=== PATIENT | male | born 1985 | race Hispanic/Latino ===

== ENCOUNTER 2017-07-06 17:42 | Inpatient (IN) | payer SELFPAY ==
[2017-07-06 18:40] LABS: BASO # 0.1 K/uL (0.0-0.2); BASO % 1.3 % (0.0-2.0); EOS % 0.2 % (0.0-4.0); LYMPH # 2.9 K/uL (1.0-4.3); LYMPH % 26.4 % (20.0-40.0); MEAN CORPUSCULAR HEMOGLOBIN 30.6 pg (27.0-31.0); MEAN CORPUSCULAR HGB CONC 35.2 g/dL (33.0-37.0); MEAN PLATELET VOLUME 7.7 fL (7.2-11.7); MONO % 9.4 % (0.0-10.0); RED CELL DISTRIBUTION WIDTH 13.7 % (11.5-14.5)
[2017-07-06 18:49] LABS: CHLORIDE 98 mmol/L (98-107); POTASSIUM 3.9 mmol/L (3.6-5.2); SODIUM 137 mmol/L (132-148)
[2017-07-06 18:51] LABS: BILIRUBIN,TOTAL 1.6 mg/dL (0.2-1.3); GFR AFRICAN-AMERICAN > 60
[2017-07-06 18:52] LABS: ALB/GLOB RATIO 1.5 (1.0-2.1); ALKALINE PHOSPHATASE 79 U/L (38-126); ALT/SGPT 60 U/L (21-72); AST/SGOT 91 U/L (17-59); BLOOD UREA NITROGEN 19 mg/dL (9-20); CALCIUM 9.9 mg/dl (8.6-10.4); CARBON DIOXIDE 24 mmol/L (22-30); GLUCOSE,RANDOM 98 mg/dL (75-110)
[2017-07-06 18:53] LABS: ALCOHOL SERUM < 10 mg/dl (0-10)
[2017-07-06 20:28] LABS: RBC URINE 3 /hpf (0-3); URINE BACTERIA RARE (<OCC); URINE BILIRUBIN NEGATIVE (NEGATIVE); URINE BLOOD NEGATIVE (NEGATIVE); URINE COLOR Amber (YELLOW); URINE GLUCOSE (UA) NORMAL (Normal); URINE KETONE 1+ mg/dL (NEGATIVE); URINE LEUKOCYTE ESTERASE NEG Leu/uL (Negative); URINE PROTEIN 1+ mg/dL (NEGATIVE); WBC URINE 2 /hpf (0-5)
--- NOTE | 2017-07-07 00:31 | C.PDOC ---
History Of Present Illness Pt was BIBEMS due to bizarre behaviour and agitation. Time Seen by Provider: 07/06/17 18:13 Chief Complaint (Nursing): Altered Mental Status History Per: Patient, EMS History/Exam Limitations: Clinical Condition Onset/Duration Of Symptoms: Unknown Current Symptoms Are (Timing): Still Present Exacerbating Factor(s): Drug Use Severity: Severe Additional History Per: Prior Records Associated Symptoms: Agitated Past Medical History Reviewed: Historical Data, Nursing Documentation, Vital Signs Vital Signs: Last Vital Signs Temp 97.9 F 07/06/17 19:15 Pulse 94 H 07/07/17 00:15 Resp 18 07/07/17 00:15 BP 104/57 L 07/07/17 00:15 Pulse Ox 97 07/07/17 00:33 Family History: States: Unknown Family Hx - Social History Hx Alcohol Use: No (UNKNOWN) Hx Substance Use: Yes Review Of Systems Review Of Systems: ROS cannot be obtained secondary to pt's inabilty to answer questions. Physical Exam - Physical Exam Appears: Combative, Agitated, Confused Skin: Normal Color, Warm, Dry, No Rash Head: Atraumatic, Normacephalic Eye(s): bilateral: PERRL Neck: Normal ROM, No Midline Cervical Tenderness, No Step Off Deformity, Supple Chest: Symmetrical, No Deformity Cardiovascular: Rhythm Regular Respiratory: Normal Breath Sounds, No Accessory Muscle Use Gastrointestinal/Abdominal: Soft, No Tenderness Extremity: Normal ROM, No Deformity Neurological/Psych: Inappropriate Response To Command, Other (Pt is internally pre-occupied, responding to internal stimuli) ED Course And Treatment - Laboratory Results Result Diagrams: 07/06/17 18:36 07/06/17 18:36 Lab Interpretation: No Acute Changes O2 Sat by Pulse Oximetry: 97 Pulse Ox Interpretation: Normal Progress Note: Pt had to be sedated for his and the staff's/other patients' safety. Reassessment Condition: Improved Disposition - Disposition Disposition Time: 00:56 Condition: IMPROVED - Clinical Impression Clinical Impression: Agitation, Drug intoxication Physician Patient Turnover Patient Signed Over To: Chana Baires Handoff Comments: to reassess pt once sedation wears off.
--- NOTE | 2017-07-07 12:06 | PCM.BM ---
<Libby Jo - Last Filed: 07/07/17 12:04> Treatment Plan Problems - Problems identified on initial assessmt Psychosis Date Initiated: 07/07/17 Time Initiated: 12:05 Assessment reference: NA Status: Active Treatment assets and liabiliti Patient Assests: educated, ADL independent, good support system - Milieu Protocol Maintain good personal hygiene: daily Encourage regular showers, daily Remind patient to perform daily oral care, daily Assist patient to perform ADL's Maintain personal safety: daily Educate patient to report safety concerns to staff, daily Monitor environment for contraband/sharps Medication safety: Monitor for expected outcome, potential side effects: daily, Assess barriers to learning: daily, Assess readiness for medication education: daily <Faraz Corral - Last Filed: 07/07/17 18:10> - Diagnosis (1) Cannabis use disorder, severe, dependence Status: Acute Interventions: Assess 7x/week regarding severity of withdrawal Educated regarding risks, benefits, side effects and alternatives of medications Used motivational interview for abstinence Used CBT for relapse prevention Medication management for withdrawal symptoms Encouraged medication assisted treatment 07/07/17 18:08 (2) 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 07/07/17 18:10 <Sarah Pereira - Last Filed: 07/10/17 11:25> Family Contact Family involvement: Family/SO is involved Family contact: Patient agrees to contact, Patient declines to allow family contact at present - Goals for Treatment Patient goals for treatment: "I want to go home." Discharge/Continuing Care - Education Needs Education Needs: Patient Medication, Patient Coping Skills - Discharge Discharge Criteria: Tolerates medication w/o severe side effects, Free of paranoid thoughts, Reduction of target symptoms Discharge to:: Home - Treatment Team Participation Discussed with Family/SO: No Was Patient/Family/SO present at Treatment Team Meeting: Yes <Raji Munson - Last Filed: 07/10/17 11:37> - Diagnosis (1) Brief psychotic disorder Status: Acute Interventions: 07/10/17 11:36 * Assess/adjust medications daily and /or as needed * See patient on an individual basis 7x/week to assess status of hallucinations * Discuss risks, benefits, side effects and alternatives of medications *
--- NOTE | 2017-07-07 17:59 | PCM.PSYCH ---
Initial Psychiatric Evaluation - Initial Psychiatric Evaluation Type of Admission: Voluntary Legal Status: Capacity Chief Complaint (in patient's own words): I'm fine. I want to go home. History of Present Illness and Precipitating Events: Patient is a 31 years old, single, who was found wandering in the traffic in [place] and was brought to ER by police disorganized and angry. Patient was a poor historian. No information was obtained from the patient. Most of the history is obtained from the record. Patient reported that he has been in national chart since 2001. 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 Patient reported he has been a member in good standing with the [employer] and left in 2011. Patient reported he was resting at his home after left foot injury. He left home and came to the hospital. Patient couldn't provide any reason that why he left his home and came to the hospital. According to the record, patient was observed wandering in traffic dazed and confused in [place]. At that time patient had no shoes on and was found inappropriately dressed for the weather. The collateral information which was obtained from family, according to record, patient left home after destroying a television, potted plants and pictures. According to family, patient has been observed acting strange and bizarre. In the ER [facility] patient was agitated and was put in 4. restraints. Patient reported he started using cannabis at 11 years of age. He was using large amount of cannabis. Last use was yesterday. During evaluation patient reported that he went to [place] and used something which he called "VAPES ". He was born in [place]. He was in . Never , has no children. His height is 5 feet 10 inches and weight is 155 pounds. He lives with family. Current Medications: Active Medications Generic Name Dose Route Start Last Admin Trade Name Freq PRN Reason Stop Dose Admin Aripiprazole 5 mg 07/07/17 10:00 07/07/17 13:22 Abilify PO 5 mg DAILY SALOMON Administration Benztropine Mesylate 1 mg 07/07/17 08:57 Cogentin PO Q1H PRN dystonia or EPS max 4x/24h Haloperidol 5 mg 07/07/17 08:57 Haldol PO Q1H PRN agitation max 4x/24h Hydroxyzine HCl 50 mg 07/07/17 08:57 Atarax PO Q6H PRN Anxiety Ibuprofen 600 mg 07/07/17 08:57 Motrin Tab PO Q6H PRN Pain, moderate (4-7) Pneumococcal Polyvalent Vaccine 0.5 ml 07/10/17 10:00 Pneumovax 23 Vaccine IM 07/10/17 10:01 .ONCE ONE Trazodone HCl 100 mg 07/07/17 08:57 Desyrel PO HS PRN Insomnia Past Psychiatric History - Past Psychiatric History Previous Treatment History: None History of Abuse: None reported History of ETOH/Drug Use: See HPI History of Family Illness: Reported history of cannabis use in the family. Pertinent Medical Hx (Current Medical&Sleep Prob, Allergies): Allergies Allergy/AdvReac Type Severity Reaction Status Date / Time No Known Allergies Allergy Unverified 07/07/17 04:50 Unobtainable 07/06/17 Review of Systems - Psychiatric Psychiatric: Confusion Mental Status Examination - Personal Presentation Personal Presentation: Looks stated age - Affect Affect: Blunted - Motor Activity Motor Activity: Calm - Reliability in Providing Information Reliability in Providing Information: Poor, due to alteration in thoughts - Mood Mood: Neutral - Formal Thought Process Formal Thought Process: Loosening of associations - Hallucinations/Delusions Hallucinations: Other (None reported) Delusions: Other - Obsessions/Compulsions Obsessions: None Compulsions: None - Cognitive Functions Orientation: Person, Place, Time Sensorium: Alert Attention/Concentration: Attentive Estimate of Intelligence: Average Judgement: Imparied, as evidence by: Lack of insight into illness Memory: Recent impaired, as evidence by: Inability to recall events of the day, Remote impaired as evidenced by: Other - Risk Risk: Diminished functioning - Strength & Assets Inventory Strength & Assets Inventory: Family support, Cooperative - Limitations Limitations: Other DSM 5 DX - DSM 5 DSM 5 Diagnosis: Cannabis induced psychotic features Psychotic features unspecified Provisional: Schizophrenia - Recommended/Plan of Treatment Treatment Recommendations and Plan of Treatment: Patient education Supportive therapy Abilify Other when necessary medications Family meeting Motivational interview for abstinence CPT for relapse prevention Projected ELOS: 8-10 days - Smoking Cessation Smoking Cessation Initiated: No Reason for not providing: Patient doesn't smoke cigarettes
--- NOTE | 2017-07-08 13:21 | PCM.PYCHPN ---
Psychiatric Progress Note - Psychiatric Progress Note Patient seen today, length of contact: 15 minutes Patient Chief Complaint: I'm fine. I don't need any medication. Problems Identified/Issues Discussed: Patient seen. Chart reviewed. Case discussed with the staff. Issues related to illness and treatment were discussed with the patient. Patient refused taking medications. Stated he is finding and doesn't need any medication. At times his conversation makes no sense. At the time of evaluation, patient was awake alert oriented 3. Denied any auditory visual hallucinations, denied suicidal or homicidal ideations. Medical Problems: None reported Diagnostic Results: Reviewed Medication Change: No Medical Record Reviewed: Yes Mental Status Examination - Cognitive Function Orientation: Person, Place, Time Memory: Intact Attention: WNL Concentration: WNL Association: WNL Fund of Knowledge: WNL Decription of patient's judgement and insights: Poor - Mood Mood: Neutral - Affect Affect: Flat - Speech Speech: Appropriate - Formal Thought Process Formal Thought Process: Loosening of associations - Suicidal Ideation Suicidal Ideation: No - Homicidal Ideation Homicidal Ideation: No Goal/Treatment Plan - Goal/Treatment Plan Need for Continued Stay: Remain at risks for inpatient hospitalization, Discharge may exacerbated symptoms, Severe functional impairment Progress Toward Problem(s) and Goals/Treatment Plan: Patient education Supportive therapy Continue treatment as before Estimated Date of D/C: 07/14/17 - Smoking Cessation Smoking Cessation Initiated: No Reason for not providing: Patient doesn't smoke cigarettes
--- NOTE | 2017-07-09 14:47 | PCM.PYCHPN ---
Psychiatric Progress Note - Psychiatric Progress Note Patient seen today, length of contact: 15 minutes Patient Chief Complaint: I am fine. I'm taking medication. Problems Identified/Issues Discussed: Patient seen. Chart reviewed. Case discussed with the staff. Issues related to illness and treatment were discussed with the patient. Reported compliant with treatment with no adverse affects . Tolerating treatment very well. Patient reported feeling better but still at times his conversation makes no sense. Patient's sister called. Patient gave verbal permission to speak with his sister. Sister reported that patient had no previous psychiatric history except cannabis use. Sr. reported that patient came from [place]. He was smoking something Liquid. Patient came home from [place] and there was change in mental status. He destroys stuff at home and was found wandering on streets. At the time of evaluation, patient was awake alert oriented 3. Denied any auditory visual hallucinations, denied suicidal or homicidal ideations. Medical Problems: None reported Diagnostic Results: Reviewed DSM 5 Symptoms Update: Some improvement with treatment Medication Change: No Medical Record Reviewed: Yes Mental Status Examination - Cognitive Function Orientation: Person, Place, Time Memory: Intact Attention: WNL Concentration: WNL Association: WNL Fund of Knowledge: WNL Decription of patient's judgement and insights: Poor - Mood Mood: Neutral - Affect Affect: Flat - Speech Speech: Appropriate - Formal Thought Process Formal Thought Process: Loosening of associations - Suicidal Ideation Suicidal Ideation: No - Homicidal Ideation Homicidal Ideation: No Goal/Treatment Plan - Goal/Treatment Plan Need for Continued Stay: Remain at risks for inpatient hospitalization, Discharge may exacerbated symptoms, Severe functional impairment Progress Toward Problem(s) and Goals/Treatment Plan: Patient education Supportive therapy Continue treatment as before Estimated Date of D/C: 07/14/17 - Smoking Cessation Smoking Cessation Initiated: No
[2017-07-10] MEDS ORDERED: Pneumococcal 23-Valent Vaccine IM ONE (10:00)
--- NOTE | 2017-07-10 11:33 | PCM.PYCHPN ---
Psychiatric Progress Note - Psychiatric Progress Note Patient seen today, length of contact: 15 minutes Patient Chief Complaint: "I okay you know, I just want to go". Problems Identified/Issues Discussed: The pt is seen, chart reviewed, case discussed with staff. At this moment, pt is refusing medications, only wants Nicotine patch because "my spiritual belief is that the plant in the patch will help with my ankle pain " and Motrin. patient remained disorganized and internally preoccupied throughout the evaluation. During the team meeting, pt was found to have latter day delusions stating "I'm on a latter day mission, I don't know if my preaching was televised but before coming here I was telling people on the streets to stay away from racism". Furthermore, pt believes that it is in his plan to one day become President of the [place], have international businesses and retire in [place]. Pt needs more time to stabilize. After care discussed, support and psychoeducation given. Pt is encouraged to speak with counselors and SW to come up with an after care plan. Pt is also encouraged to comply with the medications prescribed. Spoke with the sister, Ms Love # [phone]. Medication Change: Yes (Start Haldol ) Medical Record Reviewed: Yes Mental Status Examination - Cognitive Function Orientation: Person, Place, Situation, Time Memory: Intact Attention: Poor Concentration: Poor Association: Loose Fund of Knowledge: Poor - Mood Mood: Anxious - Affect Affect: Constricted - Speech Speech: Appropriate - Formal Thought Process Formal Thought Process: Delusions, Paranoia, Loosening of associations, Circumstantial - Suicidal Ideation Suicidal Ideation: No - Homicidal Ideation Homicidal Ideation: No Goal/Treatment Plan - Goal/Treatment Plan Need for Continued Stay: Remain at risks for inpatient hospitalization, Discharge may exacerbated symptoms, Severe functional impairment Progress Toward Problem(s) and Goals/Treatment Plan: Brief psychotic disorder Rule out schizoaffective disorder Bipolar type Continue medications Support and psychoeducation daily Attend groups and activities daily After care planning by NIK Haloperidol 5mg PO BID [facility] screeners for involuntary commitment Estimated Date of D/C: 07/14/17 - Smoking Cessation Smoking Cessation Initiated: No
--- NOTE | 2017-07-11 10:37 | RAD ---
Chest x-ray two views History: Transfer. Comparison: None available. Findings: No focal infiltrate or effusion. Heart size within normal limits. Impression: No focal infiltrate or effusion.
--- NOTE | 2017-07-11 10:43 | PCM.PYCHPN ---
Psychiatric Progress Note - Psychiatric Progress Note Patient seen today, length of contact: 16 mins Patient Chief Complaint: "I feel okay I guess" Problems Identified/Issues Discussed: The pt is seen, chart reviewed, case discussed with staff. Pt continues to refuse medications, however, still claims that "the only thing that helps is the patch doc". Pt reports that he doesn't sleep very much throughout the night as he feels like "I can stay up for as long as I want and then sleep if I want, and I can do that for a long time". Pt has no other complaints at this time. Pt needs more time to stabilize. After care discussed, support and psychoeducation given. Pt reports that upon discharge he will "go home, chill, rest and relax". Medication Change: No Medical Record Reviewed: Yes Mental Status Examination - Cognitive Function Orientation: Person, Place, Situation, Time Memory: Intact Attention: WNL Concentration: WNL Association: Loose Fund of Knowledge: Poor - Mood Mood: Anxious, Neutral - Affect Affect: Constricted - Speech Speech: Appropriate - Formal Thought Process Formal Thought Process: Delusions, Paranoia, Loosening of associations, Circumstantial - Suicidal Ideation Suicidal Ideation: No - Homicidal Ideation Homicidal Ideation: No Goal/Treatment Plan - Goal/Treatment Plan Need for Continued Stay: Remain at risks for inpatient hospitalization, Discharge may exacerbated symptoms, Severe functional impairment Progress Toward Problem(s) and Goals/Treatment Plan: Brief psychotic disorder Rule out schizoaffective disorder Bipolar type Continue medications Support and psychoeducation daily Attend groups and activities daily After care planning by NIK Haloperidol 5mg PO BID [facility] Pt is likely to be transferred to [facility] Estimated Date of D/C: 07/14/17
[2017-07-11 16:23] VITALS: O2SAT 100
[2017-07-12 07:28] VITALS: RESP 20; TEMP 98.2
--- NOTE | 2017-07-12 11:25 | PCM.PYCHPN ---
Psychiatric Progress Note - Psychiatric Progress Note Patient seen today, length of contact: 17 mins Patient Chief Complaint: "I'm good just relaxing" Problems Identified/Issues Discussed: The pt is seen, chart reviewed, case discussed with staff. Pt reports that yesterday he tried taking the medication for the first time and states "that medicine was no good for me, I felt robbed out of my identity, I felt caged and unlike myself". He reports that he will not take the medication again stating "God in charge of my life" therefore, he feels as though the medications are not necessary. The pt is non compliant with medications. Will only accept Nicotine patch. After care discussed, support and psychoeducation given. Currently waiting for the patient to be transferred to [facility]. Medication Change: No Medical Record Reviewed: Yes Mental Status Examination - Cognitive Function Orientation: Person, Place, Situation, Time Memory: Intact Attention: WNL Concentration: WNL Association: Loose Fund of Knowledge: Poor - Mood Mood: Anxious, Neutral - Affect Affect: Broad - Speech Speech: Appropriate - Formal Thought Process Formal Thought Process: Delusions, Paranoia, Loosening of associations, Circumstantial - Suicidal Ideation Suicidal Ideation: No - Homicidal Ideation Homicidal Ideation: No Goal/Treatment Plan - Goal/Treatment Plan Need for Continued Stay: Remain at risks for inpatient hospitalization, Discharge may exacerbated symptoms, Severe functional impairment Progress Toward Problem(s) and Goals/Treatment Plan: Brief psychotic disorder Rule out schizoaffective disorder Bipolar type Continue medications Support and psychoeducation daily Attend groups and activities daily After care planning by NIK Pt is waiting to be transferred to [facility] 17 mins Estimated Date of D/C: 07/14/17
[2017-07-12 16:18] VITALS: BP 116/81; PULSE 80
== END 2017-07-12 20:57 | disposition short-term general hospital (02) | DRG 885 ==
LOC: EDBD 17:42 → C.ER 17:42 → C.9E 07-07 09:11 → C.5E 07-07 09:33
PROVIDERS: ADMIT Psychiatry & Neurology Psychiatry; ATTEND Psychiatry & Neurology Psychiatry
PROC: GZ3ZZZZ Medication Management (ICD-10-PCS; principal; 2017-07-07)
PROC: GZHZZZZ Group Psychotherapy (ICD-10-PCS; 2017-07-07)
PROC: GZ56ZZZ Individual Psychotherapy, Supportive (ICD-10-PCS; 2017-07-07)
PROC: HZ59ZZZ Individual Psychotherapy for Substance Abuse Treatment, Supportive (ICD-10-PCS; 2017-07-07)
DX: F23 Brief psychotic disorder (principal); F25.0 Schizoaffective disorder, bipolar type; F12.259 Cannabis dependence with psychotic disorder, unspecified; Z91.14 Patient's other noncompliance with medication regimen; Z91.83 Wandering in diseases classified elsewhere